=== PATIENT | female | born 1965 | race Hispanic/Latino ===

== ENCOUNTER 2019-05-26 08:56 | Outpatient (CLI) | payer OTHER ==
[2019-05-26 13:32] LABS: Basophils % (Auto) 0.9 % (0.0-1.8); Eosinophils # (Auto) 0.1 K/mm3 (0.0-0.4); Eosinophils % (Auto) 1.2 % (0.0-4.3); Hematocrit 38.8 % (30.3-42.9); Hemoglobin 12.8 gm/dl (10.1-14.3); Lymphocytes # (Auto) 1.3 K/mm3 (1.2-5.4); Lymphocytes % (Auto) 27.2 % (13.4-35.0); Mean Corpuscular HGB Conc 33 % (30-34); Mean Corpuscular Volume 79 fl (79-97); Monocytes # (Auto) 0.4 K/mm3 (0.0-0.8); Monocytes % (Auto) 9.6 % (0.0-7.3); Platelet Count 296 K/mm3 (140-440); Red Blood Count 4.89 M/mm3 (3.65-5.03); Red Cell Distribution Width 14.5 % (13.2-15.2)
[2019-05-26 14:26] LABS: Alanine Aminotransferase 22 units/L (7-56); Albumin 4.3 g/dL (3.9-5); BUN/Creatinine Ratio 34; Blood Urea Nitrogen 17 mg/dL (7-17); Chol/HDL Ratio 3.37 %; HDL Cholesterol 61 mg/dL (40-59); Hemolysis Index 5; LDL Cholesterol,Direct 142 mg/dL (50-130)
[2019-05-31 15:00] LABS: Vitamin D, 25-OH, D2 45 ng/mL
== END 2019-05-26 08:57 | disposition home or self-care (01) ==
LOC: LAB 08:56
PROVIDERS: ATTEND Internal Medicine
DX: Z13.1 Encounter for screening for diabetes mellitus (principal); Z13.21 Encounter for screening for nutritional disorder; E78.5 Hyperlipidemia, unspecified
CPT/HCPCS: 36415; 80053; 80061; 82306; 82607; 83036; 84443; 85025